=== PATIENT | female | born 1990 | race Caucasian/White ===

== ENCOUNTER 2024-07-02 14:10 | Emergency (ER) | payer OTHER ==
[~2024-07-02] VITALS: Ht 162.6 cm; Wt 83.2 kg
[~2024-07-02 14:10] MED LIST: ARMOUR THYROID15 MG PO; NATURAL IRON65 MG; OMEGA-3 1000 MG1 CAP PO; PRENATAL TABLET PO; PROBIOTIC BLEN1 EACH PO; VITAMIN D 400400 IU PO
[2024-07-02 14:17] VITALS: BP 118/86; TEMP 98
[2024-07-02 15:36] VITALS: PULSE 94
== END 2024-07-02 15:38 | disposition home or self-care (01) ==
LOC: COL.ER 14:10
DX: O99.891 Other specified diseases and conditions complicating pregnancy (principal); R59.0 Localized enlarged lymph nodes; Z3A.37 37 weeks gestation of pregnancy